=== PATIENT | male | born 1975 | race Two or more races ===

== ENCOUNTER 2019-10-26 16:22 | Emergency (ER) | payer OTHER ==
[~2019-10-26] VITALS: Ht 167.6 cm; Wt 86.2 kg
--- NOTE | 2019-10-26 16:41 | NUR ---
ED Nurse Note: Patient walked into ED d/t diffuse rash on chest x 1 week. Patient states he at fish within the last week, but denies allergy to seafood. ERPA at bedside.
[2019-10-26 16:42] VITALS: BP 143/88
--- NOTE | 2019-10-26 16:50 | Emergency Room Report ---
History of Present Illness General Chief Complaint: Skin Rash/Abscess Source: Patient Present Illness HPI 44-year-old male presents to the emergency department complaining of nonpainful itchy rash that has been progressive x1 week. Patient reports symptoms are primarily on his chest near each clavicle/neck line. Patient does report milder itchy rash diffuse on the abdomen and low back. Pt. denies fevers, chills or swollen tender lymph nodes. Denies new medications or body washes or creams. Denies swelling of the lips, tongue , throat or airway. Denies wheezing , or shortness of breath. Denies recent travel, recent illness or ill contacts. denies blisters, oral lesions, or sloughing of the skin. He has not tried to take any OTC medications. Pt. reports nobody in his household has rash. Allergies: Coded Allergies: Basil (Verified Allergy, Unknown, 10/26/19) PEANUT (Verified Allergy, Unknown, 10/26/19) COVID-19 Screening Contact w/high risk pt: No Experienced COVID-19 symptoms?: No COVID-19 Testing performed LOCK PLATER: No Patient History Past Medical History: see triage record Past Surgical History: none Pertinent Family History: none Reviewed Nursing Documentation: PMH: Agreed; PSxH: Agreed Nursing Documentation-PMH Past Medical History: No Stated History Review of Systems All Other Systems: negative except mentioned in HPI Physical Exam Vital Signs Date Time Temp Pulse Resp B/P (MAP) Pulse Ox O2 Delivery O2 Flow Rate FiO2 10/26/19 16:26 98.1 77 17 143/88 (106) 99 Room Air Sp02 EP Interpretation: reviewed, normal General Appearance: no apparent distress, alert, GCS 15, non-toxic Head: normocephalic, atraumatic Eyes: bilateral eye normal inspection, bilateral eye PERRL ENT: hearing grossly normal, normal voice Neck: full range of motion, other - no stridor Respiratory: chest non-tender, lungs clear, normal breath sounds, no respiratory distress, no accessory muscle use, no wheezing, speaking full sentences Cardiovascular #1: regular rate, rhythm, no edema, normal capillary refill Gastrointestinal: non tender, soft Musculoskeletal: back normal, normal range of motion, gait/station normal, non- tender Neurologic: alert, motor strength/tone normal, oriented x3, sensory intact, responsive, speech normal Psychiatric: judgement/insight normal Skin: rash - Diffuse erythematous papules with large area of confluence to the neckline bilaterally. Although diffuse there is somewhat of a linear pattern noted. No blisters or vesicles. no sloughing of the skin. Lymphatic: no adenopathy Medical Decision Making PA Attestation Dr. Roque Is my supervising Physician whom patient management has been discussed with. Diagnostic Impression: Primary Impression: Rash and other nonspecific skin eruption ER Course 44-year-old male presents to the emergency department complaining of nonpainful itchy rash that has been progressive x1 week. Patient reports symptoms are primarily on his chest near each clavicle/neck line. Patient does report milder itchy rash diffuse on the abdomen and low back. Pt. denies fevers, chills or swollen tender lymph nodes. Denies new medications or body washes or creams. Denies swelling of the lips, tongue , throat or airway. Denies wheezing , or shortness of breath. Denies recent travel, recent illness or ill contacts. denies blisters, oral lesions, or sloughing of the skin. He has not tried to take any OTC medications. Pt. reports nobody in his household has rash. Ddx considered but are not limited to cellulitis, scabies, shingles, varicella, dermatitis, urticaria, eczema, tinea, viral exanthem, SJS Vital signs: are WNL, pt. is afebrile H&PE are most consistent with: Diffuse erythematous papules with large area of confluence to the neckline bilaterally. Although diffuse there is somewhat of a linear pattern noted. No blisters or vesicles. no sloughing of the skin. No stridor or evidence of acute impending airway compromise or anaphylaxis. ORDERS: none required at this time, the diagnosis is clinical ED INTERVENTIONS: None required at this time. -I do not identify an emergent condition at this time. With current presentation , pt. is stable for close outpatient follow up and conservative treatment. D/ w pt. to return promptly to ED with worsening or new symptoms.- Pt. verbalizes' understanding and agreement with proposed treatment plan. DISCHARGE: At this time pt. is stable for d/c to home. Will provide printed patient care instructions, and any necessary prescriptions. Care plan and follow up instructions have been discussed with the patient prior to discharge. Last Vital Signs Date Time Temp Pulse Resp B/P (MAP) Pulse Ox O2 Delivery O2 Flow Rate FiO2 10/26/19 16:42 98.1 78 17 143/88 99 Room Air Disposition: HOME, SELF-CARE Condition: Stable Scripts Permethrin* (ELIMITE*) 60 Gm Cream..g. 1 APPLIC TOPIC ONCE, #60 GM 0 Refills Apply cream from head to toe; leave on for 8-14 hours before washing off with water; may reapply in 1 week if live mites appear. Prov: Concetta Humphries 10/26/19 Hydrocortisone 2% Cream (ANTI-ITCH 2% CREAM) Y Cr 1 APPLIC TP Q6HR, #28 GM Prov: Concetta Humphries 10/26/19 Diphenhydramine Hcl (BENADRYL ALLERGY) 25 Mg Tablet 25 MG PO Q6HR, #20 TAB Prov: Concetta Humphries 10/26/19 Referrals: [facility] (PCP) Patient Instructions: Rash Additional Instructions: Take medications as directed. Do not drink alcohol, drive, or operate heavy machinery while taking Benadryl as this may cause drowsiness. Follow up with a Primary Care Provider in 3-5 days, even if your symptoms have resolved. --Please review list of primary care clinics, if you do not already have a primary care provider Return sooner to ED if new symptoms occur, or current symptoms become worse. - Please note that this Emergency Department Report was dictated using [employer] operator technology software, occasionally this can lead to erroneous entry secondary to interpretation by the dictation equipment. Concetta Humphries Oct 26, 2019 16:50
[2019-10-26] MEDS ORDERED: BENADRYL ALLERG25 M1 PO (16:52)
[2019-10-26] MEDS ORDERED: PERMETHRIN60 GM TOPIC (16:52)
[2019-10-26] MEDS ORDERED: ANTI-ITCH28 G1 TP (16:52)
[2019-10-26 17:00] VITALS: BP 143/88
--- NOTE | 2019-10-26 17:00 | NUR ---
ER DISCHARGE NOTE: Patient is cleared to be discharged per ERPA, pt is aox4, on room air, with stable vital signs. pt was given dc and prescription instructions, pt was able to verbalize understanding, pt id band removed. pt is able to ambulate with steady gait. pt took all belongings.
== END 2019-10-26 17:00 | disposition home or self-care (01) ==
LOC: EMR 16:31
DX: R21 Rash and other nonspecific skin eruption (principal); Z91.010 Allergy to peanuts; Z91.018 Allergy to other foods
CPT/HCPCS: 99282